=== PATIENT | female | born 1995 | race Caucasian/White ===

== ENCOUNTER 2021-04-29 04:55 | Observation (INO) | payer OTHER ==
[~2021-04-29] VITALS: Ht 154.9 cm; Wt 68.0 kg
== END 2021-04-29 05:41 | disposition home or self-care (01) ==
LOC: SPU 04:55
PROVIDERS: ADMIT Specialist; ATTEND Specialist
DX: O62.9 Abnormality of forces of labor, unspecified (principal); Z3A.35 35 weeks gestation of pregnancy
CPT/HCPCS: G0378